=== PATIENT | female | born 1960 | race Hispanic/Latino ===

== ENCOUNTER → 2017-09-13 | Outpatient (CLI) | payer OTHER | END | disposition home or self-care (01) | LOC: OIH 12:43 | PROVIDERS: ATTEND Internal Medicine | DX: Z13.6 Encounter for screening for cardiovascular disorders (principal) | CPT/HCPCS: 75571 ==

== ENCOUNTER → 2018-02-11 | Outpatient (CLI) | payer OTHER | END | disposition home or self-care (01) | LOC: OIH 10:03 | PROVIDERS: ATTEND Internal Medicine | DX: M47.22 Other spondylosis with radiculopathy, cervical region (principal); M48.02 Spinal stenosis, cervical region; M62.838 Other muscle spasm | CPT/HCPCS: 72050 ==

== ENCOUNTER → 2018-09-26 | Outpatient (CLI) | payer OTHER | END | disposition home or self-care (01) | LOC: OIH 11:12 | PROVIDERS: ATTEND Internal Medicine | DX: M19.032 Primary osteoarthritis, left wrist (principal); M47.812 Spondylosis without myelopathy or radiculopathy, cervical region | CPT/HCPCS: 73100 ==

== ENCOUNTER → 2018-11-03 | Outpatient (CLI) | payer OTHER | END | disposition home or self-care (01) | LOC: RAH 14:41 | PROVIDERS: ATTEND Internal Medicine | DX: M24.832 Other specific joint derangements of left wrist, not elsewhere classified (principal); M85.442 Solitary bone cyst, left hand; T14.8XXA Other injury of unspecified body region, initial encounter; X58.XXXA Exposure to other specified factors, initial encounter; Y93.89 Activity, other specified; Y92.89 Other specified places as the place of occurrence of the external cause; Y99.8 Other external cause status | CPT/HCPCS: 73221 ==

== ENCOUNTER 2020-09-27 13:00 | Inpatient (IN) | payer BC, OTHER ==
[~2020-09-27] VITALS: Ht 160 cm; Wt 74.8 kg
[~2020-09-27 13:00] MED LIST: ONDA-104 PO
[2020-09-27] MEDS ORDERED: DEXTROSE 5 %-0.45 % NACL 1,000 ML IV ONE (16:43)
[2020-09-27] MEDS ORDERED: ZOSYN 3.375GM+NS 50ML 50 ML IV ONE (16:43)
[2020-09-27] MEDS ORDERED: METRONIDAZOLE 500MG/100ML BAG 100 ML ONE (16:43)
[2020-09-27] MEDS ORDERED: SODIUM CHLORIDE 0.9% 50 ML IV ONE (16:44)
[2020-09-27 16:46] LABS: BASOPHILS % (AUTO) 0.5 % (0.0-5.0); EOSINOPHILS % (AUTO) 0.3 % (0.0-8.0); HEMATOCRIT 41.5 % (36-48); LYMPHOCYTES % (AUTO) 27.4 % (21.0-51.0); MEAN CORPUSCULAR HEMOGLOBIN 30.7 pg (27.0-33.0); MEAN CORPUSCULAR HGB CONC 33.3 g/dL (32.0-36.0); MEAN CORPUSCULAR VOLUME 92.4 fL (79-99); MONOCYTES % (AUTO) 4.9 % (3.0-13.0); NEUTROPHILS % (AUTO) 66.6 % (40.0-77.0); PLATELET COUNT (AUTO) 240 K/uL (130-400); RED BLOOD CELL COUNT(AUTO) 4.49 MIL/uL (4.00-5.50); RED CELL DISTRIBUTION WIDTH 13.1 % (11.0-15.5); WHITE BLOOD COUNT (AUTO) 8.6 K/uL (4.8-10.8)
[2020-09-27 16:49] LABS: APPEARANCE,URINE Clear (CLEAR); BILIRUBIN,URINE Negative (NEGATIVE); COLOR,URINE Yellow (YELLOW); GLUCOSE, URINE (UA) Negative (NEGATIVE); KETONES,URINE Trace mg/dL (NEGATIVE); LEUKOCYTE ESTERASE ,URINE Trace (NEGATIVE); NITRATE,URINE Negative (NEGATIVE); OCCULT BLOOD,URINE Negative (NEGATIVE); PROTEIN,URINE Negative (NEGATIVE); UROBILINOGEN,URINE 0.2 mg/dL (0.2-1.0)
[2020-09-27 16:52] LABS: CREATININE 0.8 mg/dL (0.5-1.5); POTASSIUM 3.7 mmol/L (3.5-5.1)
[2020-09-27 17:03] LABS: BACTERIA,URINE Rare /HPF (None Seen); RBC,URINE 0-1 /HPF (0-1)
[2020-09-27 17:04] LABS: MUCUS,URINE Few LPF (None Seen); SQUAMOUS EPITHELIAL CELL,UR Few /HPF (0-2)
[2020-09-28] VITALS (7 sets, daily range): BP systolic 113–140; BP diastolic 44–84
[2020-09-28] MEDS ORDERED: MORPHINE SULFATE 4 MG/1ML SYG IV PRN (01:00)
[2020-09-28] MEDS ORDERED: METRONIDAZOLE 500MG/100ML BAG 100 ML ONE (01:08)
[2020-09-28] MEDS ORDERED: MORPHINE SULFATE 4 MG/1ML SYG ONE (01:10)
[2020-09-28] MEDS ORDERED: DIPHENHYDRAMINE HCL 25 MG CAPSULE PO PRN (01:15)
[2020-09-28] MEDS ORDERED: METR-172 PO (02:34)
[2020-09-28] MEDS ORDERED: CIPR-278 PO (02:34)
[2020-09-28] MEDS: ZOSYN 3.375GM+NS 50ML 50 ML IV SCH ×3 (02:52→21:25)
[2020-09-28 06:13] LABS: HEMATOCRIT 37.6 % (36-48); MEAN CORPUSCULAR HEMOGLOBIN 29.7 pg (27.0-33.0); MEAN CORPUSCULAR HGB CONC 32.4 g/dL (32.0-36.0); MEAN CORPUSCULAR VOLUME 91.5 fL (79-99); RED BLOOD CELL COUNT(AUTO) 4.11 MIL/uL (4.00-5.50); RED CELL DISTRIBUTION WIDTH 13.2 % (11.0-15.5); WHITE BLOOD COUNT (AUTO) 7.8 K/uL (4.8-10.8)
[2020-09-28 06:29] LABS: ALBUMIN 3.3 g/dL (3.5-5.0); BILIRUBIN,DIRECT 0.1 mg/dL (0.0-0.3); BILIRUBIN,TOTAL 0.4 mg/dL (0.2-1.0); CREATININE 0.8 mg/dL (0.5-1.5); POTASSIUM 3.6 mmol/L (3.5-5.1); TOTAL PROTEIN, SERUM 5.9 g/dL (6.0-8.3)
[2020-09-28] MEDS ORDERED: IOHEXOL-350 75 ML VIAL IV ONE (07:46)
[2020-09-28] MEDS: METRONIDAZOLE 500MG/100ML BAG 100 ML IVPB SCH ×2 (09:47→17:14)
[2020-09-28] MEDS: FAMOTIDINE 20MG TAB 20 MG TAB PO SCH ×2 (09:48→21:25)
[2020-09-28] MEDS: DEXTROSE 5 %-0.45 % NACL 1,000 ML IV SCH (12:01)
[2020-09-28] MEDS: ACETAMINOPHEN 325 MG TAB PO PRN (16:05)
[2020-09-28] MEDS: ZOLPIDEM TARTRATE 5 MG TAB PO PRN (23:21)
[2020-09-29] MEDS: METRONIDAZOLE 500MG/100ML BAG 100 ML IVPB SCH ×4 (01:21→18:05)
[2020-09-29] MEDS: ZOSYN 3.375GM+NS 50ML 50 ML IV SCH ×3 (04:05→20:57)
[2020-09-29 04:10] VITALS: BP 135/78
[2020-09-29] MEDS: DEXTROSE 5 %-0.45 % NACL 1,000 ML IV SCH ×3 (04:28→22:47)
[2020-09-29 07:12] LABS: BASOPHILS % (AUTO) 0.5 % (0.0-5.0); EOSINOPHILS % (AUTO) 0.6 % (0.0-8.0); HEMATOCRIT 38.7 % (36-48); MEAN CORPUSCULAR HGB CONC 32.8 g/dL (32.0-36.0); MEAN CORPUSCULAR VOLUME 91.5 fL (79-99); MONOCYTES % (AUTO) 6.1 % (3.0-13.0); NEUTROPHILS % (AUTO) 62.6 % (40.0-77.0); PLATELET COUNT (AUTO) 219 K/uL (130-400); RED BLOOD CELL COUNT(AUTO) 4.23 MIL/uL (4.00-5.50); WHITE BLOOD COUNT (AUTO) 6.3 K/uL (4.8-10.8)
[2020-09-29 07:26] LABS: ALBUMIN 3.2 g/dL (3.5-5.0); BILIRUBIN,TOTAL 0.3 mg/dL (0.2-1.0); CREATININE 0.7 mg/dL (0.5-1.5); POTASSIUM 3.8 mmol/L (3.5-5.1)
[2020-09-29 08:10] VITALS: BP 129/76
[2020-09-29] MEDS: FAMOTIDINE 20MG TAB 20 MG TAB PO SCH ×2 (08:47→20:57)
[2020-09-29 12:00] VITALS: BP 144/84
[2020-09-29] MEDS: ACETAMINOPHEN 325 MG TAB PO PRN (15:52)
[2020-09-29 16:00] VITALS: BP 125/57
[2020-09-29 19:46] VITALS: BP 111/69
[2020-09-29] MEDS: ZOLPIDEM TARTRATE 5 MG TAB PO PRN (22:47)
[2020-09-29 23:32] VITALS: BP 121/68
[2020-09-30] MEDS: METRONIDAZOLE 500MG/100ML BAG 100 ML IVPB SCH ×3 (02:18→22:20)
[2020-09-30 03:06] VITALS: BP 125/70
[2020-09-30] MEDS: DEXTROSE 5 %-0.45 % NACL 1,000 ML IV SCH ×2 (03:16→12:57)
[2020-09-30] MEDS: ZOSYN 3.375GM+NS 50ML 50 ML IV SCH ×3 (04:42→21:38)
[2020-09-30 07:04] LABS: HEMATOCRIT 36.9 % (36-48); MEAN CORPUSCULAR HEMOGLOBIN 30.8 pg (27.0-33.0); MEAN CORPUSCULAR HGB CONC 33.6 g/dL (32.0-36.0); MEAN CORPUSCULAR VOLUME 91.8 fL (79-99); RED BLOOD CELL COUNT(AUTO) 4.02 MIL/uL (4.00-5.50); WHITE BLOOD COUNT (AUTO) 6.7 K/uL (4.8-10.8)
[2020-09-30 07:09] VITALS: BP 104/58
[2020-09-30 07:15] LABS: ALBUMIN 3.2 g/dL (3.5-5.0); BILIRUBIN,TOTAL 0.3 mg/dL (0.2-1.0); CREATININE 0.8 mg/dL (0.5-1.5); POTASSIUM 3.6 mmol/L (3.5-5.1); TOTAL PROTEIN, SERUM 5.8 g/dL (6.0-8.3)
[2020-09-30] MEDS: FAMOTIDINE 20MG TAB 20 MG TAB PO SCH ×2 (08:45→21:38)
[2020-09-30 10:19] LABS: INR 1.06 (0.85-1.15); PROTHROMBIN TIME 11.5 SEC (9.6-11.6)
[2020-09-30 10:21] LABS: PARTIAL THROMBOPLASTIN TIME 42.5 SEC (26.3-35.5)
[2020-09-30 11:10] VITALS: BP 134/70
[2020-09-30 16:24] VITALS: BP 124/67
[2020-09-30] MEDS: ACETAMINOPHEN 325 MG TAB PO PRN (21:39)
[2020-09-30 23:41] VITALS: BP 130/68
[2020-10-01 03:51] VITALS: BP 117/95
[2020-10-01] MEDS: ZOSYN 3.375GM+NS 50ML 50 ML IV SCH ×2 (05:07→13:36)
[2020-10-01] MEDS: DEXTROSE 5 %-0.45 % NACL 1,000 ML IV SCH (05:11)
[2020-10-01] MEDS: METRONIDAZOLE 500MG/100ML BAG 100 ML IVPB SCH ×2 (06:02→13:36)
[2020-10-01 07:12] VITALS: BP 137/76
[2020-10-01] MEDS: FAMOTIDINE 20MG TAB 20 MG TAB PO SCH (10:09)
[2020-10-01] MEDS: ACETAMINOPHEN 325 MG TAB PO PRN (11:19)
[2020-10-01 11:20] VITALS: BP 130/95
[2020-10-01] MEDS: ZOLPIDEM TARTRATE 5 MG TAB PO PRN (11:39)
[2020-10-01 15:36] VITALS: BP 144/74
== END 2020-10-01 19:35 | disposition home or self-care (01) | DRG 392 ==
LOC: EDH 13:00 → OBSVTOIN 13:01 → EDHIP 13:01 → 3CH 21:49 → EDHIP 22:33 → WSH 09-28 00:20
PROVIDERS: ADMIT Internal Medicine; ATTEND Internal Medicine
PROC: 02HV33Z Insertion of Infusion Device into Superior Vena Cava, Percutaneous Approach (ICD-10-PCS; principal; 2020-10-01)
DX: K57.92 Diverticulitis of intestine, part unspecified, without perforation or abscess without bleeding (principal); Z87.440 Personal history of urinary (tract) infections; Z79.899 Other long term (current) drug therapy; Z91.041 Radiographic dye allergy status
CPT/HCPCS: 36415; 71045; 74177; 80048; 80053; 80076; 81001; 83690; 85025; 85027; 85610; 85730; G0378; J2270; J2543; J3490; J7042; Q9967